=== PATIENT | female | born 1965 | race Native Hawaiian/Other Pacific Islander ===

== ENCOUNTER 2017-11-13 13:33 | Outpatient (CLI) | payer BC | END 2017-11-13 14:35 | disposition home or self-care (01) | LOC: RAD 13:33 | DX: J40 Bronchitis, not specified as acute or chronic (principal) ==

== ENCOUNTER 2017-11-19 16:17 | Outpatient (CLI) | payer BC | END 2017-11-19 19:25 | disposition home or self-care (01) | LOC: RESP 16:17 | DX: R09.89 Other specified symptoms and signs involving the circulatory and respiratory systems (principal); R07.89 Other chest pain | CPT/HCPCS: 93306 ==

== ENCOUNTER 2017-11-20 08:30 | Outpatient (CLI) | payer BC | END 2017-11-20 19:40 | disposition home or self-care (01) | LOC: US 08:30 → RESP 09:00 → US 19:40 | DX: R09.89 Other specified symptoms and signs involving the circulatory and respiratory systems (principal); R07.89 Other chest pain ==

== ENCOUNTER 2017-12-16 08:35 | Outpatient (CLI) | payer BC | END 2017-12-16 11:00 | disposition home or self-care (01) | LOC: NM 08:35 | DX: R09.89 Other specified symptoms and signs involving the circulatory and respiratory systems (principal); R07.89 Other chest pain | CPT/HCPCS: A9500 ==

== ENCOUNTER 2019-08-09 17:04 | Outpatient (CLI) | payer OTHER | END 2019-08-09 22:42 | disposition home or self-care (01) | LOC: LAB 17:04 | DX: N39.0 Urinary tract infection, site not specified (principal) | CPT/HCPCS: 87086; 87088 ==

== ENCOUNTER 2019-08-13 11:06 | Outpatient (CLI) | payer OTHER ==
[2019-08-13 11:33] LABS: POTASSIUM 4.1 mmol/L (3.6-5.2)
== END 2019-08-13 22:55 | disposition home or self-care (01) ==
LOC: LABW 11:06
PROVIDERS: Physician Assistant
DX: R79.89 Other specified abnormal findings of blood chemistry (principal)
CPT/HCPCS: 36415; 80053

== ENCOUNTER 2019-09-27 10:52 | Outpatient (CLI) | payer OTHER | END 2019-09-27 20:24 | disposition home or self-care (01) | LOC: MAMMO 10:52 | DX: Z12.31 Encounter for screening mammogram for malignant neoplasm of breast (principal) ==

== ENCOUNTER 2020-06-30 06:52 | Outpatient (CLI) | payer OTHER | END 2020-06-30 19:54 | disposition home or self-care (01) | LOC: LABW 06:52 | DX: R73.9 Hyperglycemia, unspecified (principal) | CPT/HCPCS: 36415; 82951; 82952; 83036 ==

== ENCOUNTER 2020-10-06 10:27 | Outpatient (CLI) | payer OTHER | END 2020-10-06 19:10 | disposition home or self-care (01) | LOC: RAD 10:27 | DX: M79.605 Pain in left leg (principal); M25.561 Pain in right knee ==

== ENCOUNTER 2020-10-24 10:59 | Outpatient (CLI) | payer OTHER | END 2020-10-24 19:13 | disposition home or self-care (01) | LOC: MAMMO 10:59 | PROVIDERS: ATTEND Internal Medicine | DX: Z12.31 Encounter for screening mammogram for malignant neoplasm of breast (principal); Z13.820 Encounter for screening for osteoporosis; N95.8 Other specified menopausal and perimenopausal disorders ==

== ENCOUNTER 2022-01-29 09:19 | Outpatient (CLI) | payer OTHER | END 2022-01-29 19:04 | disposition home or self-care (01) | LOC: MAMMO 09:19 | PROVIDERS: ATTEND Internal Medicine | DX: Z12.31 Encounter for screening mammogram for malignant neoplasm of breast (principal) ==

== ENCOUNTER 2022-03-29 08:38 | Outpatient (CLI) | payer OTHER | END 2022-03-29 18:52 | disposition home or self-care (01) | LOC: CT 08:38 | PROVIDERS: ATTEND Internal Medicine | DX: R31.9 Hematuria, unspecified (principal) ==

== ENCOUNTER 2023-03-19 09:35 | Outpatient (CLI) | payer OTHER | END 2023-03-19 19:10 | disposition home or self-care (01) | LOC: RAD 09:35 | PROVIDERS: ATTEND Internal Medicine | DX: R39.14 Feeling of incomplete bladder emptying (principal); Z13.820 Encounter for screening for osteoporosis; Z12.31 Encounter for screening mammogram for malignant neoplasm of breast; R05.9 Cough, unspecified ==

== ENCOUNTER 2023-04-08 13:50 | Outpatient (CLI) | payer OTHER | END 2023-04-08 19:02 | disposition home or self-care (01) | LOC: MAMMO 13:50 | PROVIDERS: ATTEND Internal Medicine | DX: Z12.31 Encounter for screening mammogram for malignant neoplasm of breast (principal); R39.14 Feeling of incomplete bladder emptying; Z13.820 Encounter for screening for osteoporosis ==